=== PATIENT | male | born 1955 | race African-American/Black ===

== ENCOUNTER → 2018-04-25 | Outpatient (CLI) | payer MEDICARE, OTHER | END | disposition home or self-care (01) | LOC: RADPV 11:05 | PROVIDERS: ATTEND Specialist | DX: M47.812 Spondylosis without myelopathy or radiculopathy, cervical region (principal); M43.8X4 Other specified deforming dorsopathies, thoracic region; M54.5 Low back pain; G89.29 Other chronic pain | CPT/HCPCS: 72040; 72070; 72100 ==

== ENCOUNTER → 2019-04-29 | Outpatient (CLI) | payer MEDICARE, OTHER | END | disposition home or self-care (01) | LOC: RADMN 13:36 | PROVIDERS: ATTEND Internal Medicine Geriatric Medicine | DX: I67.82 Cerebral ischemia (principal); R47.1 Dysarthria and anarthria; I25.10 Atherosclerotic heart disease of native coronary artery without angina pectoris | CPT/HCPCS: 70450 ==